=== PATIENT | male | born 1980 | race Caucasian/White ===

== ENCOUNTER 2023-05-25 18:12 | Emergency (ER) | payer OTHER ==
[2023-05-25] MEDS ORDERED: METOPROLOL TAR 50 MG TAB ONE (18:40)
[2023-05-25] MEDS ORDERED: MORPHINE 2 MG/ML SYR ONE (18:40)
[2023-05-25] MEDS ORDERED: CLOPIDOGREL 75 MG TABLET ONE (18:41)
[2023-05-25 18:51] LABS: Absolute Lymphocytes (CBC) 1.9 K/uL (0.7-4.9); Lymphocytes % 34.1 % (15.3-44.8); MCV 87.5 fL (80-100); RBC Red Blood Cell Count 4.92 M/uL (4.33-5.43)
[2023-05-25] MEDS ORDERED: ONDANSETRON 4 MG/2 ML VIAL ONE (18:54)
[2023-05-25] MEDS ORDERED: KETOROLAC 30 MG/ML INJ ONE (18:54)
[2023-05-25] MEDS ORDERED: MORPHINE 4 MG/ML SYR ONE (18:54)
[2023-05-25] MEDS ORDERED: NA CHLORIDE 0.9% 1,000 ML ONE (18:55)
[2023-05-25 19:02] LABS: Specific Gravity 1.018 (1.005-1.030); Urine Bacteria None Seen /HPF (<20); Urine Bilirubin NEGATIVE (Negative); Urine Blood 3+ (OVER) (Negative); Urine Clarity Extremely Turbid (Clear); Urine Color Dark-Brown (Yellow); Urine Glucose NEGATIVE (Negative); Urine Mucus 3+ /HPF (None Seen); Urine Protein 2+ (Negative); Urine RBC >50 /HPF (None Seen); Urine Urobilinogen Normal (Normal); Urine pH 5.5 (5.0-7.0)
[2023-05-25 19:06] LABS: Albumin 3.9 g/dL (3.4-5.0); Bilirubin Total 0.6 mg/dL (0.2-1.0); Potassium 3.6 mEq/L (3.5-5.1); Protein, Total 7.4 g/dL (6.4-8.2)
--- NOTE | 2023-05-25 19:25 | RAD REPORT ---
EXAM DESCRIPTION: CT - Stone Protocol - 05/25/2023 7:06 pm CLINICAL HISTORY: Abdominal pain. COMPARISON: None. TECHNIQUE: Computed axial tomography of the abdomen pelvis was obtained without oral or IV contrast. Lack of IV and oral contrast limits evaluation of solid organs, appendix, bowel, and vessels. Henderson l reformatted images were obtained and reviewed. All CT scans are performed using dose optimization technique as appropriate and may include automated exposure control or mA/KV adjustment according to patient size. FINDINGS: 3 millimeter calculus right kidney. No hydronephrosis. No left renal calculus. Ureteral calculus is not seen. No bladder calculus. The liver, spleen, pancreas and adrenals appear grossly normal There is no evidence of diverticulitis. The appendix appears normal Small umbilical hernia IMPRESSION: 3 millimeter nonobstructing right renal calculus
--- NOTE | 2023-05-25 19:39 | ER ---
Nurse's Notes [facility] Name: Tomer Hernandez Age: 43 yrs Sex: Male : 1980 Arrival Date: 05/25/2023 Time: 18:12 Bed 15 Private MD: Diagnosis: Hematuria, unspecified Presentation: 05/25 18:18 Chief complaint: Patient states: LEFT FLANK PAIN WITH HEMATURIA. Coronavirus screen: At bp this time, the client does not indicate any symptoms associated with coronavirus-19. Ebola Screen: No symptoms or risks identified at this time. Initial Sepsis Screen: Does the patient meet any 2 criteria? No. Patient's initial sepsis screen is negative. Does the patient have a suspected source of infection? No. Patient's initial sepsis screen is negative. Risk Assessment: Do you want to hurt yourself or someone else? Patient reports no desire to harm self or others. Note SAME S/S TO PREVIOUS KIDNEY STONE. Onset of symptoms was May 25, 2023 at 17:45. 18:18 Method Of Arrival: Ambulatory bp 18:18 Acuity: GISSELLE 3 bp Triage Assessment: 18:20 General: Appears uncomfortable, Behavior is calm, cooperative, appropriate for age. bp Pain: Complains of pain in left lower quadrant. EENT:. GI: Reports lower abdominal pain. : Reports pain in left flank(s). Historical: - Allergies: 18:20 No Known Allergies; bp - Home Meds: 18:20 None [Active]; bp - PMHx: 18:20 None; bp - Immunization history:: Adult Immunizations up to date. - Social history:: Smoking status: Patient denies any tobacco usage or history of. Screenin:33 [facility] ED Fall Risk Assessment (Adult) History of falling in the last 3 months, mb9 including since admission No falls in past 3 months (0 pts) Confusion or Disorientation No (0 pts) Intoxicated or Sedated No (0 pts) Impaired Gait No (0 pts) Mobility Assist Device Used No (0 pt) Altered Elimination No (0 pt) Score/Fall Risk Level 0 - 2 = Low Risk Oriented to surroundings, Maintained a safe environment, Educated pt \T\ family on fall prevention, incl call for assistance when getting out of bed. Abuse screen: Denies threats or abuse. Nutritional screening: No deficits noted. Tuberculosis screening: No symptoms or risk factors identified. Assessment: 19:32 General: Appears in no apparent distress. Behavior is calm, cooperative, appropriate mb9 for age. Neuro: Young Agitation-Sedation Scale (RASS): 0 - Alert and Calm Level of Consciousness is awake, alert, obeys commands, Oriented to person, place, time, situation, Appropriate for age. Respiratory: Airway is patent Respiratory effort is even, unlabored, Respiratory pattern is regular, symmetrical. : Urine is blood tinged. Derm: Skin is pink, warm \T\ dry. Musculoskeletal: Range of motion: intact in all extremities. Vital Signs: 18:18 BP 117 / 85; Pulse 69; Resp 16; Temp 97.5; Pulse Ox 100% ; bp 19:32 BP 116 / 66; Pulse 74; Resp 16; Pulse Ox 98% on R/A; Pain 3/10; mb9 19:32 Pain Scale: Adult mb9 ED Course: 18:14 Patient arrived in ED. mr 18:18 Mariama Zamora, [facility] kb 18:18 Jann Hernandez MD is Attending Physician. kb 18:20 Triage completed. bp 18:21 Arm band placed on. bp 18:43 Romeo Duran, RN is Primary Nurse. os 18:43 CBC with Diff Sent. aw1 18:43 CMP Sent. aw1 18:43 Urinalysis w/ reflexes Sent. aw1 18:43 Inserted saline lock: 20 gauge in right antecubital area, using aseptic technique. aw1 19:07 CT Stone Protocol In Process Unspecified. EDMS 19:29 Placed in gown. Bed in low position. Call light in reach. Side rails up X 1. Client mb9 placed on continuous cardiac and pulse oximetry monitoring. NIBP monitoring applied. 19:33 No provider procedures requiring assistance completed. mb9 19:39 Ketan Conklin MD is Referral Physician. kb 19:45 IV discontinued, intact, bleeding controlled, No redness/swelling at site. Pressure mb9 dressing applied. Administered Medications: 18:56 Drug: NS 0.9% IV 1000 ml Route: IV; Rate: 1 bolus; Site: right antecubital; os 18:57 Drug: Ondansetron IVP 4 mg Route: IVP; Site: right antecubital; os 18:58 Drug: TORadol - Ketorolac IVP 15 mg Route: IVP; Site: right antecubital; os 19:04 Drug: morphine IVP or IV 4 mg Route: IVP; Infused Over: 4 mins; Site: right antecubital;os Outcome: 19:39 Discharge ordered by . lise 19:45 Discharged to home ambulatory. mb9 19:45 Condition: stable 19:45 Discharge instructions given to patient, Instructed on discharge instructions, follow up and referral plans. Demonstrated understanding of instructions, follow-up care, medications, Prescriptions given X 2. 19:45 Patient left the ED. mb9 Signatures: Dispatcher [employer] EDMS Mariama Zamora, ACTIVITIES MANAGER-C ACTIVITIES MANAGER-Silviob Merna Liu Brian, RN RN Merna Sorensen RN RN mb9 Romeo Duran RN RN os Corry Montes aw1 Corrections: (The following items were deleted from the chart) 19:32 19:32 BP 166 / 66; Pulse 74bpm; Resp 16bpm; Pulse Ox 98% RA; Pain 3/10, Adult; mb9 mb9
--- NOTE | 2023-05-25 19:39 | EDPHYS ---
Physician Documentation [facility] Name: Tomer Hernandez Age: 43 yrs Sex: Male : 1980 Arrival Date: 05/25/2023 Time: 18:12 Bed 15 Private MD: ED Physician Jann Hernandez HPI: 05/25 19:29 This 43 yrs old Male presents to ER via Ambulatory with complaints of Urinary Problem, kb Abdominal Pain. 19:29 The patient presents with urinary symptoms, hematuria. Onset: The symptoms/episode kb began/occurred just prior to arrival. Modifying factors: The symptoms are alleviated by nothing, the symptoms are aggravated by urinating. Associated signs and symptoms: Pertinent positives: abdominal pain, hematuria, Pertinent negatives: constipation, diarrhea, dysuria, fever, nausea, vomiting. Severity of symptoms: At their worst the symptoms were moderate, in the emergency department the symptoms are unchanged. The patient has experienced similar episodes in the past, a few times. The patient has not recently seen a physician. 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 States it feels similar to when he had a kidney stone in the past. Historical: - Allergies: 18:20 No Known Allergies; bp - Home Meds: 18:20 None [Active]; bp - PMHx: 18:20 None; bp - Immunization history:: Adult Immunizations up to date. - Social history:: Smoking status: Patient denies any tobacco usage or history of. ROS: 19:29 Constitutional: Negative for fever, chills, and weight loss. kb 19:29 Abdomen/GI: Positive for abdominal pain, Negative for nausea, vomiting, and diarrhea. 19:29 : Positive for hematuria. 19:29 All other systems are negative. Exam: 19:29 Constitutional: This is a well developed, well nourished patient who is awake, alert, kb and in no acute distress. Head/Face: Normocephalic, atraumatic. ENT: Moist Mucous membranes Cardiovascular: Regular rate and rhythm with a normal S1 and S2. No gallops, murmurs, or rubs. No pulse deficits. Respiratory: Respirations even and unlabored. No increased work of breathing. Talking in full sentences Skin: Warm, dry with normal turgor. Normal color. MS/ Extremity: Pulses equal, no cyanosis. Neurovascular intact. Full, normal range of motion. Neuro: Awake and alert, GCS 15, oriented to person, place, time, and situation. Moves all extremities. Normal gait. 19:29 Abdomen/GI: Inspection: abdomen appears normal, Bowel sounds: normal, Palpation: soft, in all quadrants, mild abdominal tenderness, in the left lower quadrant. Vital Signs: 18:18 BP 117 / 85; Pulse 69; Resp 16; Temp 97.5; Pulse Ox 100% ; bp 19:32 BP 116 / 66; Pulse 74; Resp 16; Pulse Ox 98% on R/A; Pain 3/10; mb9 19:32 Pain Scale: Adult mb9 MDM: 18:18 Patient medically screened. kb 19:29 Data reviewed: vital signs, nurses notes. kb 19:31 Differential diagnosis: nonspecific abdominal pain, UTI, urethritis, ureterolithiasis. kb Counseling: I had a detailed discussion with the patient and/or guardian regarding: the historical points, exam findings, and any diagnostic results supporting the discharge/admit diagnosis, lab results, radiology results, the need for outpatient follow up, a urologist, to return to the emergency department if symptoms worsen or persist or if there are any questions or concerns that arise at home. 05/25 18:21 Order name: CBC with Diff; Complete Time: 19:05 kb 05/25 18:21 Order name: CMP; Complete Time: 19:09 kb 05/25 18:21 Order name: Urinalysis w/ reflexes; Complete Time: 19:05 kb 05/25 18:21 Order name: CT Stone Protocol; Complete Time: 19:27 kb 05/25 18:21 Order name: IV Saline Lock; Complete Time: 18:43 kb 05/25 18:21 Order name: Labs collected and sent; Complete Time: 18:43 kb Administered Medications: 18:56 Drug: NS 0.9% IV 1000 ml Route: IV; Rate: 1 bolus; Site: right antecubital; os 18:57 Drug: Ondansetron IVP 4 mg Route: IVP; Site: right antecubital; os 18:58 Drug: TORadol - Ketorolac IVP 15 mg Route: IVP; Site: right antecubital; os 19:04 Drug: morphine IVP or IV 4 mg Route: IVP; Infused Over: 4 mins; Site: right antecubital;os Disposition Summary: 05/25/23 19:39 Discharge Ordered Location: Home kb Condition: Stable kb Diagnosis - Hematuria, unspecified kb Followup: kb - With: Emergency Department - When: As needed - Reason: Worsening of condition Followup: kb - With: Private Physician - When: 2 - 3 days - Reason: Recheck today's complaints, Continuance of care, Re-evaluation by your physician Followup: kb - With: Ketan Conklin MD - When: 2 - 3 days - Reason: Recheck today's complaints Discharge Instructions: - Discharge Summary Sheet kb - Hematuria, Adult kb Forms: - Medication Reconciliation Form kb - Thank You Letter kb - Antibiotic Education kb - Prescription Opioid Use kb - [email or web address] kb Prescriptions: - Zofran 4 mg Oral Tablet - take 1 tablet by ORAL route every 6 hours As needed; 12 tablet; Refills: 0, kb Product Selection Permitted - Diclofenac Sodium 75 mg Oral tablet,delayed release (DR/EC) - take 1 tablet by ORAL route 2 times per day As needed; 30 tablet; Refills: 0, kb Product Selection Permitted Signatures: Dispatcher [employer] Mariama Norris, TYSHAWN-David VILLAGRAN-Franky May, RN RN bp Romeo Duran, RN RN os
[2023-05-25 20:03] VITALS: TEMP 97.5
[2023-05-25 20:09] VITALS: BP 116/66; O2SAT 98
== END 2023-05-25 19:45 | disposition home or self-care (01) ==
LOC: ER 18:12
DX: R31.9 Hematuria, unspecified (principal); R10.32 Left lower quadrant pain
CPT/HCPCS: 85025; 81001; 36415; 80053; 76377; 74176; 96375; 96374; 99284; J2405; J7030; J2270